=== PATIENT | female | born 1965 | race Caucasian/White ===

== ENCOUNTER 2019-06-10 00:30 | Outpatient (CLI) | payer OTHER, SELFPAY ==
--- NOTE | 2019-06-10 08:00 | DI.MRI_ITS ---
EXAM: MR LUMBAR SPINE WO CLINICAL HISTORY: lumbar pain M54.5 LOW BACK PAIN. TECHNIQUE: Multiplanar multisequence MRI was performed. COMPARISON: No exams were available for comparison FINDINGS: The vertebral bodies are well maintained in height. T12-L1 and L1-2 levels are unremarkable. Conu s medullaris terminates at T12-L1. The L2-3 disc shows mild concentric bulging. There is no signifi cant neural foraminal narrowing or central canal stenosis. There is disc bulging at L3-4 which is ec centric toward the left causing mild neural foraminal narrowing. At L4-5, there is moderate loss of disc height, moderate concentric disc bulging as well as endplate osteophytes which are eccentric tow pepe the right. There are facet degenerative changes but no significant central canal stenosis. There is mild left and moderate right neural foraminal narrowing. The L5-S1 discs shows asymmetric osteop hytes eccentric toward the left. There are bilateral facet degenerative changes. There is mild left neural foraminal narrowing but no significant central canal stenosis. No disc herniation is seen at any level. The aorta is normal in diameter. IMPRESSION: The degenerative disc and facet degenerative changes combine to cause neural foraminal narrowing, gre atest on the right at L4-5.
== END 2019-06-10 00:50 ==
PROVIDERS: Visit Provider Nurse Practitioner Family
DX: M54.5 Low back pain (principal); M51.37 Other intervertebral disc degeneration, lumbosacral region; M47.817 Spondylosis without myelopathy or radiculopathy, lumbosacral region
CPT/HCPCS: 72148

== ENCOUNTER 2019-08-05 13:50 | Outpatient (CLI) | payer OTHER, SELFPAY ==
[2019-08-05 13:53] VITALS: BP 104/73; PULSE 78; RESP 18; TEMP 37.1; O2SAT 96
[2019-08-05 14:46] VITALS: BP 122/83; PULSE 69; RESP 16; O2SAT 99
--- NOTE | 2019-08-05 14:46 | PDOC.PAIN ---
Pain Clinic Procedure Note Procedure Note Procedure Note: Lumbar/Sacral Medial Branch Blocks #1 KEI MURILLO has been referred to the [facility] for lumbar/sacral medial branch blocks. COMMENTS: DX: Lumbosacral spondylosis without myelopathy Patient was interviewed and the medical record reviewed. There were no medical, pharmacologic, radiographic or other structural contraindications to attempting fluoroscopically guided local anesthetic lumbar/sacral medial branch blocks. Risks and expected side effects as well as potential benefit of the procedure were reviewed and voiced concerns addressed. The printed consent form was signed and witnessed. Standard time-out procedure was performed. Patient was placed in the prone position on the fluoroscopy table and automated blood pressure cuff and pulse oximeter applied. The skin entry points for approaching the anatomic target points of the segmental medial branches of bilateral L3-L5 were identified with anfluoroscopy and marked. Following thorough Chlorhexadine preparation of the skin and draping, a 25 gauge 3.5 spinal needle was placed under fluoroscopic guidance down on to the target point for each respective segmental medial branch.Position was confirmed in A/P, oblique and lateral views with 0.25ml of omnipaque 240. At this point I injected 0.5ml of 0.5% Bupivacaine at each segmental nerve. Vital signs were stable throughout the procedure and were as recorded in the docflowsheet by the nursing staff. Follow up plans and appointments were discussed and was instructed to keep careful note of how the usual pain was modified by these injections. Specifically was asked to keep a pain diary for the next 24 hours using a numeric pain scale of 0-10 and report these results at the follow-up visit. Post procedure instruction was given as documented in the nursing documentation and having met discharge criteria. Patient was discharged from the [facility]. Based on the medial branches blocked today, if the patient has adequate relief and we are able to proceed to radiofrequency ablation, the treatment should result in the denervation of the bilateral L4-L5 and L5-S1 FACET JOINTS. We would expect to denervate a total of 4 facets during the radiofrequency ablation. COMMENTS: She will call back with her 1-4 hour post-procedure pain scores for the low back. CC: None
[2019-08-05] MEDS: Omnipaque 240 MG/ML 50 ML BTL IJ (14:56)
[2019-08-05] MEDS: Bupivacaine 0.5% Pres-Free 10 ML VIAL IJ (14:57)
--- NOTE | 2019-08-05 15:37 | DI.RAD_ITS ---
EXAM: XR PAIN CLINIC LUMBAR SP 2V CLINICAL HISTORY: Dx: Lumbar Spondylosis TECHNIQUE: 2D and realtime digital imaging was performed. Fluoroscopy was provided in the OR. C-arm fluoroscopy was utilized by Dr. Foy during bilateral lumbar medial branch blocks. COMPARISON: No exams were available for comparison FINDINGS: Hard copies show needle placement adjacent to the neural foramina at what appear to be the L3-4, L4-5 and L5-S1 levels bilaterally. Fluoro Time: 47.1 seconds.
== END 2019-08-05 14:10 ==
PROVIDERS: Visit Provider Preventive Medicine Occupational Medicine
DX: M47.817 Spondylosis without myelopathy or radiculopathy, lumbosacral region (principal)
CPT/HCPCS: 64493; 64494; 72100; Q9967

== ENCOUNTER 2019-08-24 14:04 | Outpatient (CLI) | payer OTHER, SELFPAY ==
--- NOTE | 2019-08-24 06:00 | DI.RAD_ITS ---
EXAM: XR PAIN CLINIC LUMBAR SP 2V CLINICAL HISTORY: DX: LUMBAR RADICULOPATHY TECHNIQUE: 2D and realtime digital imaging was performed. C-arm fluoroscopy was utilized by Dr. Barber during reported epidural steroid injection. COMPARISON: No exams were available for comparison FINDINGS: Hard copy shows needle placement and injection at the L4-5 disc level. Fluoro time 20.3 seconds RADIATION DOSE DELIVERED:
[2019-08-24 14:33] VITALS: BP 104/66; PULSE 69; RESP 18; TEMP 37.2; O2SAT 95
--- NOTE | 2019-08-24 14:34 | PDOC.PAIN ---
Pain Clinic Procedure Note Procedure Note Procedure Note: Lumbar Epidural Steroid Injection Procedure Note Pre-operative diagnosis: lumbar spondylosis with lumbar radiculopathy Post-operative diagnosis: same as above COMMENTS: patient was seen and evaluated by Ms Amy Reeves APRN, patient has predominantly axial back pain with occasional radiation down left hip area. Patient denies any radiating pain down the right leg. MRI L spine shows lumbar spondylosis, facet arthropathy causing foraminal stenosis, worse at L4-5 level. Patient underwent diagnostic lumbar medial branch nerve block without alleviating any of her symptoms. She returns today for a trial of lumbar epidural steroid injection for symptomatic relief. KEI MURILLO has been referred to the [facility] for lumbar epidural steroid injection. The patient was greeted by the nurse who verified patients name and . Patient was then taken to the fluoroscopy suite. The patient was interviewed and the medial record reviewed. There were no medical, pharmacologic, radiographic, or other structural contraindications to attempting fluoroscopically guided lumbar epidural steroid injection. Risks and expected side effects as well as potential benefits of the procedure were reviewed and voiced concerns expressed. The patient consent form was signed and witnessed. Standard patient time-out procedure was performed. The patient was placed in the prone position on the fluoroscopy table and automated blood pressure cuff and pulse oximeter applied. The skin entry point for entering/approaching the epidural space by a L4-5 and marked. Following thorough chlorhexadine preparation of the skin and draping and 1% lidocaine infiltration of the skin entry point and subcutaneous tissues, a 18 gauge Touhy needle was placed under fluoroscopic guidance and with loss of resistance technique into the epidural space. Needle tip placement and depth were aided and confirmed by fluoroscopy. There was no paresthesia or return of blood or CSF through the needle. 1 cc's of Omnipaque 240 was injected with clear epidural spread confirmed with fluoroscopy. 80mg depomedrol was injected. There was not any unusual discomfort expressed by KEI MURILLO. Patient's vital signs were stable throughout the procedure and were as recorded in nursing records. Follow up plans and appointments were discussed with patient. Post procedure instruction was given as documented in nursing records and having met discharge criteria and was discharged from the [facility]. COMMENTS: If this procedure is helpful, it can be completed up to 3 times per 12 months. If this fails to achieve significant pain relief, then patient should schedule a clinic follow up visit with Ms Leandro APRN. I personally performed the entire procedure. Jennifer Barber MD Pain Management
[2019-08-24 14:58] VITALS: BP 121/82; PULSE 61; RESP 13; O2SAT 97
[2019-08-24] MEDS: Omnipaque 240 MG/ML 50 ML BTL IJ (15:07)
[2019-08-24] MEDS: methylPREDNISolone ACETATE 80 MG/ML VIAL IJ (15:08)
== END 2019-08-24 14:24 ==
PROVIDERS: Visit Provider Internal Medicine
DX: M47.27 Other spondylosis with radiculopathy, lumbosacral region (principal)
CPT/HCPCS: 62323; 72100; J1040; Q9967

== ENCOUNTER 2019-10-28 00:49 | Outpatient (CLI) | payer OTHER, SELFPAY ==
--- NOTE | 2019-10-28 06:45 | DI.RAD_ITS ---
EXAM: XR HIP LT COMPLETE AP PELVIS CLINICAL HISTORY: lumbar pain with associated left hip/groin pain,M25.552 TECHNIQUE: COMPARISON: No exams were available for comparison FINDINGS: Two views of the hip and pelvis were obtained. There are mild hypertrophic degenerative changes of t he SI joints and moderate hypertrophic degenerative changes of visualized portions of the lumbar spin e. The cartilaginous joint spaces of the hips appear well maintained bilaterally. Minimal marginal osteophyte formation of the acetabula noted. No other significant bony abnormality seen. IMPRESSION: Mild DJD both hips.
== END 2019-10-28 01:09 ==
PROVIDERS: Visit Provider Nurse Practitioner Family
DX: M25.552 Pain in left hip (principal); M54.5 Low back pain; M53.3 Sacrococcygeal disorders, not elsewhere classified; M16.0 Bilateral primary osteoarthritis of hip
CPT/HCPCS: 73502

== ENCOUNTER 2019-11-11 09:50 | Outpatient (CLI) | payer OTHER, SELFPAY ==
--- NOTE | 2019-11-11 06:00 | DI.RAD_ITS ---
EXAM: XR PAIN CLINIC SACRIOILIAC 2V CLINICAL HISTORY: Dx:Sacroliliac Joint Dysfunction TECHNIQUE: 2D and realtime digital imaging was performed. Fluoroscopy was provided in the OR COMPARISON: No exams were available for comparison FINDINGS: C-arm fluoroscopy was utilized by Dr. Foy during left SI joint injection. Hard copy shows needle pl acement at the left SI joint. Fluoro time, 29.5 seconds. IMPRESSION: RADIATION DOSE DELIVERED: Total DLP
[2019-11-11 10:09] VITALS: BP 117/78; PULSE 77; RESP 17; TEMP 36.7; O2SAT 94
[2019-11-11 10:43] VITALS: BP 102/53; PULSE 74; RESP 14; O2SAT 95
--- NOTE | 2019-11-11 10:47 | PDOC.PAIN_ITS ---
Pain Clinic Procedure Note Procedure Note Procedure Note: INTRA-ARTICULAR SI JOINT INJECTION KEI MURILLO has been referred to the [facility] for intra-articular SI joint injection. COMMENTS: She has had several procedures and was most recently evaluated in our clinic on 11/03/19 [address] Ms[address] Joseph. I did review that evaluation. DX: Sacroiliac joint dysfunction Patient was interviewed and the medical record reviewed. There were no medical, pharmacologic, radiographic or other structural contraindications to attempting fluoroscopically guided intra-articular SI joint injection. Risks and expected side effects as well as potential benefit of the procedure were reviewed and voiced concerns addressed. The printed consent form was signed and witnessed. Standard time-out procedure was performed. Patient was placed in the prone position on the fluoroscopy table and automated blood pressure cuff and pulse oximeter applied. The skin entry point for approaching the left SI joint was identified under the most advantageous fluoroscopic view and marked. Following thorough Chlorhexadine preparation of the skin and draping and 1% lidocaine infiltration of the skin entry point and subcutaneous tissues, a 22 gauge spinal needle was placed under fluoroscopic anderson dance into the left SI joint. Intra-articular placement was confirmed by a clear arthrogram resulting from the injection of 0.25ml Omnipaque 240, 1ml 1% lidocaine, and 40mg Depomedrol were injected intra-articularily with an initial reproduction of a significant component of the usual pain. Vital signs were stable throughout the procedure and were as recorded in the docflowsheet by the nursing staff. If given, dosages of intravenous drugs for anxiolysis and analgesia were documented in MAR. Follow up plans and appointments were discussed with the patient. Post procedure instruction was given as documented in nursing documentation and having met discharge criteria, and was discharged from the [facility]. COMMENTS: She did very well with the procedure. CC: None
[2019-11-11] MEDS: Omnipaque 240 MG/ML 50 ML BTL IJ (11:07)
[2019-11-11] MEDS: methylPREDNISolone ACETATE 40 MG/ML VIAL IJ (11:07)
== END 2019-11-11 10:10 ==
PROVIDERS: Visit Provider Preventive Medicine Occupational Medicine
DX: M53.3 Sacrococcygeal disorders, not elsewhere classified (principal)
CPT/HCPCS: 27096; 72200; J1030; Q9967

== ENCOUNTER 2020-03-15 01:22 | Outpatient (CLI) | payer OTHER, SELFPAY ==
--- NOTE | 2020-03-15 06:30 | DI.MRI_ITS ---
EXAM: MR LUMBAR SPINE WO CLINICAL HISTORY: Increased symptoms,WEAKNESS LT LOWER EXT,STRAIN,R29.898.S39.012A. TECHNIQUE: Multiplanar multisequence MRI was performed. COMPARISON: MR MR LUMBAR SPINE WO from 06/10/2019 FINDINGS: MR examination of the lumbosacral spine was performed according to the usual protocol. No focal bony signal abnormality seen lumbar or lower thoracic region. The conus medullaris appears intact. No significant findings from the T10-11 level through the L1-2 level. At L2-3, there is a mild disc bulge. There is no disc herniation, central canal spinal stenosis, or neural foraminal stenosis. At L3-4, there is a disc bulge with mild superimposed left lateral disc herniation. No gross interva l change in appearance in comparison with prior scan of May 2019. No significant neural foramin al or central canal stenosis. Mild bilateral facet hypertrophy. At L4-5, there is a mild left lateral disc herniation. There is mild narrowing of left lateral reces s, impingement on left L5 nerve root not excluded. No significant neural foraminal narrowing or cent ral canal spinal stenosis. At L5-S1, there is moderate facet hypertrophy. Mild disc bulge noted, no disc herniation, no neural foraminal stenosis or central canal spinal stenosis. IMPRESSION: Small left-sided disc herniations at L3-4 and L4-5, mild narrowing of left lateral canal recess at L4 -5, possible impingement on left L5 nerve root, please correlate clinically. No gross interval smith e in appearance in comparison with prior scan of May 2019. DATA REPOSITORY:
== END 2020-03-15 01:42 ==
PROVIDERS: Visit Provider Nurse Practitioner Family
DX: R29.898 Other symptoms and signs involving the musculoskeletal system (principal); M51.26 Other intervertebral disc displacement, lumbar region
CPT/HCPCS: 72148

== ENCOUNTER 2020-05-02 09:53 | Outpatient (CLI) | payer OTHER, SELFPAY ==
--- NOTE | 2020-05-02 06:00 | DI.RAD_ITS ---
EXAM: XR PAIN CLINIC LUMBAR SP 2V CLINICAL HISTORY: Dx: Lumbar Radiculopathy TECHNIQUE: 2D and realtime digital imaging was performed. CONTRAST MATERIAL: Refer to procedure report. COMPARISON: No exams were available for comparison FINDINGS: Fluoroscopy was provided for Dr. Barber during the performance of a transforaminal epidural steroid inje ction. Please refer to the procedure report for complete details. Fluoro time: 68.7 seconds IMPRESSION:
[2020-05-02 10:12] VITALS: BP 110/69; PULSE 74; RESP 16; TEMP 36.7; O2SAT 96
[2020-05-02] MEDS: Omnipaque 240 MG/ML 50 ML BTL IJ (11:07)
[2020-05-02] MEDS: Dexamethasone Sod. Phos./Pres-Free 10 MG/ML VIAL IJ (11:07)
--- NOTE | 2020-05-02 11:09 | PDOC.PAIN_ITS ---
Pain Clinic Procedure Note Procedure Note Procedure Note: PROCEDURE NOTE Transforaminal Epidural Steroid Injection with Fluoroscopic Guidance at left L5 Chief Complaint: left leg pain. Injured herself at work about 12 months ago. Previous left L4-5 TFESI and left SI joint injection did not provide any si gnificant pain relief. She is currently on disability and sees occupational therapy. Pre-operative diagnosis: lumbar radiculopathy due to disc herniation Post-operative diagnosis: same as above KEI MURILLO has been referred to the [facility] for Lumbar Transforaminal Epidural Steroid Injection left L5 COMMENTS: Referring provider: Ms Amy Joseph APRN Allergies: PCN Pre-procedure VAS: 9/10 down left leg. Follow up plan: per Ms Amy Joseph APRN. KEI MURILLO was greeted by the nurse who verified patients name and . Patient was then taken to the fluoroscopy suite. KEI was interviewed and the medical record reviewed. There were no medical, pharmacologic, radiographic or other structural contraindications to attempting fluoroscopically guided transforaminal lumbar epidural steroid injection. The risks, benefits, and potential side effects were reviewed with the patient. Risk include, but not limited to, post dural puncture, headache, infection, nerve injury, allergic reaction, possible increase in symptoms over the ensuing 24 to 48 hours, and paralysis. The patient appeared to understand, questions were answered and the patient agreed to proceed. Once I obtained informed verbal consent, the printed consent form was signed by the patient and myself. Standard time-out procedure was performed. TECHNIQUE: After informed written consent was obtained the patient was placed in the prone position. The lumbar spine was prepped with chloraprep and draped. Sterile technique was observed during the entire procedure ( cap, gloves, and mask were worn). Vitals signs were monitored throughout the procedure. The left side was marked with a radioopaque marker. The skin and subcutaneous structures were anesthetized with lidocaine 1% to a total volume of 3 ML at each level. Under fluoroscopic guidance, in ipsilateral oblique view, co-axial approach, 22 gauge 5'' spinal needle(s) were advanced to the base of the lumbar L5 pedicle(s). The needle(s) were advanced to the superio-posterior aspect of the neural foramen under lateral view. Oblique and AP views were rechecked. Under AP view Omnipaque 240 1cc's was injected while visualized with fluoroscopy. There was no evidence of intravascular uptake, the epidural space was delineated. 15 mg Dexamethasone was injected after negative aspiration, at each level, followed by lidocaine 1% 1.0-ML at each level. (49 cc of Omnipaque was wasted). Outcome: The patient tolerated the procedure well and had stable vital signs. The patient noted after getting up after the procedure that their left leg pain was at a 9 out of 10 level. patient reports intense pressure localized to left lower back with lesser pressure down posterior buttock and lateral aspect of her left leg - she is able to ambulate independently. individual lower extremity muscle strengths were tested which was 5/5, with pain limited component. patient is very cautious with her gait with ambulation. Follow up plans and appointments were discussed with KEI . The patient was o bserved in the pain clinic and then discharged after having met discharge criteria to the care of a industrial tractor driver. The patient received written instructions as documented in nursing records. Disposition: KEI was discharged from the procedure suite without new neurological complaints. Follow-up: Follow up with as scheduled or PRN. I would be hesitant to rep eat injections unless it provides significant pain relief. I personally performed the entire procedure. Jennifer Barber MD ABPN-subspecialty board certification in Pain Medicine Attending Physician-Pain Management
[2020-05-02 11:12] VITALS: BP 112/79; PULSE 76; RESP 19; O2SAT 100
== END 2020-05-02 10:13 ==
PROVIDERS: Visit Provider Internal Medicine
DX: M54.16 Radiculopathy, lumbar region (principal)
CPT/HCPCS: 64483; 72100; Q9967

== ENCOUNTER 2020-10-19 02:08 | Outpatient (CLI) | payer MEDICAID, SELFPAY ==
--- NOTE | 2020-10-19 07:00 | DI.US_ITS ---
EXAM: US BREAST LT COMPLETE CLINICAL HISTORY: BILAT BREAST PAIN,n64.4, family h/o breast ca. TECHNIQUE: Complete ultrasound of the left breast was performed incluing all 4 quadrants, the retroa reolar region, and the ipsilateral axilla. COMPARISON: Prior mammogram performed today was reviewed FINDINGS: No evidence of solid or significant cystic lesions in all 4 quadrants. Retroareolar region is negative. No adenopathy in the left axilla IMPRESSION: Negative complete ultrasound of the left breast BI-RADS Category 0 - Assessment Incomplete: Need additional imaging evaluation, specifically the stanislaw ent will tearing or prior film screen mammograms for comparison to the mammogram performed today. Fi nal addendum will follow once this has been performed Breast Density - Category B - Scattered areas of fibroglandular density Breast density Category C or D implies that the patient has dense breast tissue. Dense breast tissue can make it harder to find cancer on a mammogram. Dense breast tissue is also associated with an incr eased risk of breast cancer. This information about the result of the mammogram report was provided to the patient to raise their awareness. Use this report when you speak with the patient about their risks for breast cancer, which includes their family history. At that time, you may recommend additional screening tests (Ultrasoun d or MRI) as these tests may add significant information. A negative radiographic report should not delay biopsy if a dominant or clinically suspicious mass is present. Up to ten percent of cancers are not identified on mammography. A negative report may reinforce clinical impression. Adenosis and dense breasts may obscure an underlying neoplasm. False positive reports average 6 to 10%. Patient will receive a letter notifying them of these results.
--- NOTE | 2020-10-19 07:00 | DI.US_ITS ---
EXAM: US BREAST RT COMPLETE CLINICAL HISTORY: BILAT BREAST PAIN,n64.4, family h/o breast ca. TECHNIQUE: Complete ultrasound of the right breast was performed incluing all 4 quadrants, the retro areolar region, and the ipsilateral axilla. COMPARISON: Prior mammograms were reviewed. Patient has not brought in her outside 2001 and 2006 carole m screen mammograms. FINDINGS: There is a solitary finding which is at 10 o'clock position 6 cm in from the nipple which has the humberto earance of a 4 x 3 millimeter benign lymph node. This benign ultrasound finding may or may not corre spond to finding on the mammogram. Nevertheless, finding on the mammogram is unchanged from 2001 and 2006 and therefore benign. No other ultrasound findings in all 4 quadrants. Also no ipsilateral axillary adenopathy. IMPRESSION: Benign findings. No evidence of malignancy BI-RADS Category 2 - Benign Findings Breast Density - Category A - Almost entirely fatty Breast density Category C or D implies that the patient has dense breast tissue. Dense breast tissue can make it harder to find cancer on a mammogram. Dense breast tissue is also associated with an incr eased risk of breast cancer. This information about the result of the mammogram report was provided to the patient to raise their awareness. Use this report when you speak with the patient about their risks for breast cancer, which includes their family history. At that time, you may recommend additional screening tests (Ultrasoun d or MRI) as these tests may add significant information. A negative radiographic report should not delay biopsy if a dominant or clinically suspicious mass is present. Up to ten percent of cancers are not identified on mammography. A negative report may reinforce clinical impression. Adenosis and dense breasts may obscure an underlying neoplasm. False positive reports average 6 to 10%. Patient will receive a letter notifying them of these results.
--- NOTE | 2020-10-19 07:00 | DI.MAMMO_ITS ---
EXAM: MG MAMMO DIAGNOSTIC BI CLINICAL HISTORY: BILAT BREAST PAIN,n64.4, family h/o breast ca. TECHNIQUE: Both CC and MLO images were obtained with 3D [employer] and utilizing compute r aided detection (CAD). Also performed spot compression view of the right breast. COMPARISON: None available at this time. The patient informs me that she has prior film screen mamm ograms at her house which she was instructed to bring here for comparison purposes. An addendum will follow when these received. She has apparently complaining of bilateral breast pain. She denies feeling a lump. No discharge FINDINGS: There are small benign-appearing nodules in both upper outer quadrants which are probably benign lymp h nodes. In the right breast CC image there is an asymmetric density measuring 8 x 4 millimeters located appro ximately 6 cm in from the nipple. Spot compression view reveals this to be a possible lymph node. Benign-appearing micro and macro calcifications noted bilaterally. No significant architectural distortion or skin thickening-traction. IMPRESSION: 1. No radiographic evidence of malignancy in left breast. 2. Asymmetric density-possible nodule right breast. An addendum will follow when we receive her prio r outside film screen mammograms for comparison. 3. Please note that bilateral complete breast ultrasound performed following the mammogram today reve aled a 4-5 millimeter benign-appearing intramammary lymph node in the right breast approximately 6 cm in from the nipple which may or may not correspond to the finding on the mammogram. There are no ot her focal ultrasound findings in all 4 quadrants. Please see that separate ultrasound report.. BI-RADS Category 0 - Assessment Incomplete: Need additional imaging evaluation, specifically comparis on to prior outside mammograms. An addendum with final BI-RADS will follow once these are obtained. Breast Density - Category B - Scattered areas of fibroglandular density Breast density Category C or D implies that the patient has dense breast tissue. Dense breast tissue can make it harder to find cancer on a mammogram. Dense breast tissue is also associated with an incr eased risk of breast cancer. This information about the result of the mammogram report was provided to the patient to raise their awareness. Use this report when you speak with the patient about their risks for breast cancer, which includes their family history. At that time, you may recommend additional screening tests (Ultrasoun d or MRI) as these tests may add significant information. A negative radiographic report should not delay biopsy if a dominant or clinically suspicious mass is present. Up to ten percent of cancers are not identified on mammography. A negative report may reinforce clinical impression. Adenosis and dense breasts may obscure an underlying neoplasm. False positive reports average 6 to 10%. Patient will receive a letter notifying them of these results.
== END 2020-10-19 02:28 ==
PROVIDERS: PCP Nurse Practitioner Family; Visit Provider Physician Assistant
DX: N64.4 Mastodynia (principal); Z80.3 Family history of malignant neoplasm of breast; R92.8 Other abnormal and inconclusive findings on diagnostic imaging of breast; N63.11 Unspecified lump in the right breast, upper outer quadrant
CPT/HCPCS: 76642; 77062; 77066; G0279

== ENCOUNTER 2020-10-30 01:19 | Outpatient (CLI) | payer OTHER, SELFPAY ==
--- NOTE | 2020-10-30 06:30 | DI.MRI_ITS ---
Exam(s) MR LUMBAR SPINE WO EXAM: MR LUMBAR SPINE WO CLINICAL HISTORY: Increased weakness left lower extremity,low back pain with radiation,m54.5,. TECHNIQUE: Multiplanar multisequence MRI of the Lumbar spine was performed. COMPARISON: MR MR LUMBAR SPINE WO from 03/15/2020 FINDINGS: Bones: The last intervertebral disc space is designated the L5/S1 level for the numbering purpose of this examination. The vertebral body heights are well maintained. Alignment is satisfactory. Mild d egenerative endplate signal changes are noted at multiple levels in the lumbar spine. Cord: The conus tip ends at the L1 level. It is of normal size and signal intensity. T12-L1: No disc herniations or bulges are present. No central spinal canal or neural foraminal stenos is. L1-2: No disc herniations or bulges are present. No central spinal canal or neural foraminal stenosis . L2-3: There is now developed a moderate sized left paracentral disc herniation with extrusion posteri or to the L2 vertebral body. It may compress the left L2 nerve root. There is mild narrowing of the central spinal canal. No significant neural foraminal stenosis is present. L3-4: There has been interval increase in size of the left paracentral disc herniation. It causes le ft lateral recess stenosis compressing the left L4 nerve root. There are degenerative changes of the facets. Mild narrowing of the central spinal canal is noted. No significant right neural foraminal stenosis is seen. There is mild left neural foraminal stenosis. L4-5: There is a diffuse disc bulge. There are mild degenerative changes of the facets. No signific ant central spinal canal stenosis is seen.Mild bilateral neural foraminal stenosis is present. L5-S1: No disc herniations or bulges are present. No central spinal canal or neural foraminal stenosi s. Soft tissues: The visualized SI joints and sacrum are well maintained. The paraspinal soft tissues ar e unremarkable. There is again seen a 2 cm right simple renal cyst. IMPRESSION: 1. Interval development of a left paracentral disc herniation at L2-L3 with extrusion posterior to th e L2 vertebral body. It causes left lateral recess stenosis and appears to compress the left L2 nerv e root. 2. Interval increase in size of the L3-L4 left paracentral disc herniation. It causes left lateral r ecess stenosis compressing the left L4 nerve root. 3. Multilevel degenerative changes in the lumbar spine as described above. DATA REPOSITORY:
== END 2020-10-30 01:39 ==
PROVIDERS: PCP Nurse Practitioner Family; Visit Provider Nurse Practitioner Family
DX: M54.16 Radiculopathy, lumbar region (principal); M79.605 Pain in left leg; M62.81 Muscle weakness (generalized); M51.16 Intervertebral disc disorders with radiculopathy, lumbar region
CPT/HCPCS: 72148

== ENCOUNTER 2020-11-19 18:20 | Emergency (ER) | payer SELFPAY ==
[2020-11-19 18:25] VITALS: PULSE 73; RESP 18; TEMP 36.7; O2SAT 96
--- NOTE | 2020-11-19 18:41 | ED.GENADUL_ITS ---
Discharge Plan Disposition Patient Disposition: HOME Condition: Stable Discharge Details Clinical Impression: Tick bite Primary Care Provider: [place] Ayala ED Provider: Latesha Barajas Home Meds and New Rx's Prescriptions: No Action acetaminophen 500 mg Tablet 1,000 mg PO TID RF: 0 gabapentin 600 mg tablet 600 mg PO TID 30 Days Qty: 90 RF: 11 gabapentin 300 mg capsule 300 mg PO QHS Qty: 90 RF: 0 meloxicam 7.5 mg tablet 7.5 mg PO BID Qty: 60 RF: 2 (DME) TENS unit and electrodes Combo Pack See Rx Instructions .ROUTE .MEDSUPPLY Qty: 1 RF: 0 Discharge Instructions Instructions: Tick Bite (ED) Additional Instructions: Follow up with primary care provider in 3-5 days. Return to ED sooner if any worsening or concerns. Increase oral fluids. Please take Tylenol or Ibuprofen with food every 4-6 hours as needed for pain and swelling. You were given a one-time dose of doxycycline 200 mg which is the preventative for Lyme disease at this time. Please be seen by your PCP for any fever worsening rash or any concern Referrals: [place] Ayala, RUDI [Primary Care Provider] - Discharge Data Discharge Date/Time-TO BE ENTERED AT DEPARTURE: 11/19/20 19:01 Medical Decision Making 55-year-old female presents to the ER with chief complaint of tick bite noted to the right posterior shoulder which she noticed on Friday. Tick was engorged she was unable to identify it. She did pull it out. There is a rash noted with a centralized bite hortensia. She denies any other symptoms or concerns. At this time we will treat her for Lyme preventative with doxycycline 200mg.. Instructed to follow-up with PCP discussed strict return instructions including worsening rash, nausea vomiting or any concerns. HPI General Mode of arrival: ambulatory . Date/Time Provider Initiated Documentation: 11/19/20 18:39 . Limitations to Documentation: no limitations . Information obtained by: patient . HPI Narrative: Tick bite right posterior shoulder 2 days ago. Patient did not identify tick. She states it was engorged and she threw it away. Does have a slight erythemic raised rash with well-demarcated borders noted around a central bite. No other rash noted no other complaints at this time. She is allergic to amoxicillin and penicillin. Related Data Home Medications Medication Instructions Recorded Confirmed TENS unit and electrodes combo pack #1 each 06/17/19 11/19/20 acetaminophen 1,000 mg PO TID 07/22/19 11/19/20 gabapentin 600 mg tablet 600 mg PO TID 30 Days #90 tab 06/19/20 11/19/20 gabapentin 300 mg capsule 300 mg PO QHS #90 cap 09/06/20 11/19/20 meloxicam 7.5 mg tablet 7.5 mg PO BID #60 tab 10/03/20 11/19/20 Previous Rx's Medication Instructions Recorded TENS unit and electrodes combo pack #1 each 06/17/19 gabapentin 600 mg tablet 600 mg PO TID 30 Days #90 tab 06/19/20 gabapentin 300 mg capsule 300 mg PO QHS #90 cap 09/06/20 meloxicam 7.5 mg tablet 7.5 mg PO BID #60 tab 10/03/20 Allergies Allergy/AdvReac Type Severity Reaction Status Date / Time amoxicillin Allergy Topical Unverified 11/19/20 18:29 Irritation Penicillins Allergy Anaphylaxsi Verified 10/03/20 17:52 s General Stated Complaint: RashLesion KENRICK: 4 Review of Systems All systems reviewed & are unremarkable except as noted in HPI and below Integumentary/Breasts Skin/Breast: Reports as per HPI and Reports rash (Right posterior shoulder tick bite) PFSH Surgical History H/O tubal ligation (~1990) History of appendectomy (~2005) 2005 Hx of section 11/17/1989 03/17/1991 Hx of tonsillectomy Family History Mother , 69 Cancer Father , 42 Cancer Sister , 47 Cancer Sister No problems noted. Brother , 71 Cancer Son No problems noted. Son No problems noted. Maternal Grandfather , 85 No problems noted. Paternal Grandfather , 30 No problems noted. Maternal Grandmother , 80 Cancer Paternal Grandmother , 79 No problems noted. Social History Smoking/Tobacco Use Status: Former Tobacco Use tobacco type: cigarettes Quit Date: 08/28/94 Pack-years: 13 Second Hand Exposure: Yes Smoking risk assessment performed?: Yes Alcohol Intake: current Alcohol Intake frequency: a few times a month Alcohol type: beer, wine and hard liquor Drug use: Never Substance use type: does not use Caregiver/Support person: No Household members: spouse Housing: house Number of Children: 2 Communication Needs: Corrective Lenses Do you need help understanding health information?: Never Pets and animals: Yes Pets and animals: cat(s) and dog(s) Sexually active: No Do you think of yourself as: straight/heterosexual Current gender identity: female What is your relationship status?: How often do you talk on the phone with friends or family?: three or more times per week How often do you get together with friends or relatives?: once per week How often do you attend uatsdin or uatsdin services?: decline to answer Do you belong to any clubs or organized social groups?: yes Panel score (0-1 are the most socially isolated patients): 3 What type of physical activity do you participate in: walking and additional Details: PT Pool Therapy Duration: < 15 minutes/day Frequency: 1-2 times per week Jonna/Mu-Ism: Druze Seatbelt use: sometimes Helmet use: Yes Helmet use: sometimes Drive intox or ride w/intox school bus driver/teacher assistant: No Do you feel safe at home: Yes Do you feel safe in your relationship?: Yes Exam Back/Spine/Pelvis Back/spine/pelvis image: 1. Raised maculopapular erythemic area with central bite melendez. Patient reports tick bite, no other rash noted at this time mother, Course Vital Signs Vital signs: Vital Signs Temperature 36.7 C 11/19/20 18:25 Pulse 73 11/19/20 18:25 Respiratory Rate 18 11/19/20 18:25 Pulse Oximetry 96 11/19/20 18:25 Temperature 36.7 C 11/19/20 18:25 Temperature Source Skin 11/19/20 18:25 Pulse 73 11/19/20 18:25 Respiratory Rate 18 11/19/20 18:25 Respiratory Effort Non-Labored 11/19/20 18:28 Blood Pressure Position Sitting 11/19/20 18:25 Pulse Oximetry 96 11/19/20 18:25 Oxygen Delivery Method Room Air 11/19/20 18:25 Oxygen Flow Rate 0 11/19/20 18:25 Pain Level 2 11/19/20 18:25
[2020-11-19] MEDS: Doxycycline Hyclate 100 MG CAP 200 MG PO (18:56)
== END 2020-11-19 19:01 | disposition home or self-care (01) ==
PROVIDERS: Emergency Provider Registered Nurse Emergency; PCP Nurse Practitioner Family
DX: S20.461A Insect bite (nonvenomous) of right back wall of thorax, initial encounter (principal); W57.XXXA Bitten or stung by nonvenomous insect and other nonvenomous arthropods, initial encounter; R21 Rash and other nonspecific skin eruption
CPT/HCPCS: 99283

== ENCOUNTER 2020-11-21 20:45 | Outpatient (REF) | payer SELFPAY ==
[2020-11-23 09:42] LABS: Lyme Ab w Rflx to Lyme Confirm Negative (Negative)
[2020-11-24 03:42] LABS: Anaplasma phagocytophilum Negative (Negative); B. miyamotoi PCR Negative (Negative); Babesia divergens/MO-1 Negative (Negative); Babesia duncani Negative (Negative); Babesia microti Negative (Negative); Ehrlichia chaffeensis Negative (Negative); Ehrlichia ewingii/canis Negative (Negative); Ehrlichia muris eauclairensis Negative (Negative)
== END 2020-11-21 20:46 | disposition home or self-care (01) ==
LOC: NCHCN 20:45
PROVIDERS: PCP Nurse Practitioner Family; Visit Provider Nurse Practitioner Family
DX: W57.XXXA Bitten or stung by nonvenomous insect and other nonvenomous arthropods, initial encounter (principal); T14.8XXA Other injury of unspecified body region, initial encounter
CPT/HCPCS: 87798; 86618

== ENCOUNTER 2021-03-23 09:27 | Outpatient (CLI) | payer SELFPAY ==
--- NOTE | 2021-03-23 09:15 | RT.EKG_ITS ---
APPROVED REPORT Exam: Resting ECG Reason for Exam: pre-op eval Patient Location: O HR:64 bpm ECG Measurements Heart Rate 64 AXIS NH 174 P 34 QRSd 95 QRS -39 QT 420 T 30 QTc 433 Conclusion Sinus rhythm...normal P axis, V-rate 60- 99 Left axis deviation...QRS axis (-30,-90)
== END 2021-03-23 09:28 | disposition home or self-care (01) ==
LOC: DI.CM 09:28
PROVIDERS: PCP Nurse Practitioner Family; Visit Provider Nurse Practitioner
DX: Z01.818 Encounter for other preprocedural examination (principal); I44.4 Left anterior fascicular block
CPT/HCPCS: 93010

== ENCOUNTER 2021-08-09 02:06 | Outpatient (CLI) | payer OTHER, SELFPAY ==
--- NOTE | 2021-08-09 | DI.MRI_ITS ---
Exam(s) MR LUMBAR SPINE WO/W EXAM: MR LUMBAR SPINE WO/W CLINICAL HISTORY: H/O LUMBAR SURGERY, RECENT FALL, NEW LEG SYMPTOMS AND BACK PAIN,DISC AVNI-. TECHNIQUE: Multiplanar multisequence MRI of the Lumbar spine was performed. Both pre and post contra st infused sequences were performed COMPARISON: MR MR LUMBAR SPINE WO from 10/30/2020 FINDINGS: Compared to prior preop MRI scan performed October 2020 Conus medullaris is at normal level. There is no evidence of conus mass nor subjacent clumping of in trathecal nerve roots to suggest arachnoiditis. The distal thecal sac appears unremarkable.There is no evidence of Tarlov intrasacral cysts nor other significant findings within the sacral canal Bones:There are no fractures nor ominous osseous lesions in the lumbar vertebral bodies and visualize d sacrum. With respect to the individual levels... T12-L1: Unremarkable L1-2: Normal disc height and signal. No disc herniation nor central canal stenosis.No foraminal steno sis L2-3: There has been interval left partial laminectomy at this level. The previously present disc he rniation is no longer seen. No new significant disc herniation at this level and no central canal st enosis.Also no significant foraminal stenosis evident at this level.No obvious facet arthropathy. L3-4: This level also exhibits evidence of left-sided surgery. There is left side annular bulging at this level again noted. However, the size of the posterolateral left disc protrusion is smaller jf n previous. Some enhancement is seen in this region which is consistent granulation tissue. Annular bulging on the left side extends into the floor of the exiting left neural foramen, unchanged from p revious. However, there is no prominent foraminal stenosis on the left side at this level. There is no foraminal stenosis on the opposite-right side. No prominent facet arthropathy at this level. L4-5: This level again exhibits chronic decreased disc height and signal and annular bulging which is again more prominent on the right side and extends into the floor of the exiting right neural forame n, unchanged. Mild right-sided foraminal stenosis is unchanged. No significant left-sided foraminal stenosis. Central canal pins are. Mild facet joint degenerative changes. L5-S1: Preserved disc height and signal. No disc herniation or central canal stenosis. No significa nt foraminal stenosis. Soft tissues: There is a cyst in the right kidney incidentally noted which measures 2 cm. This is u nchanged from the prior October 2020 study. IMPRESSION: 1. When compared to the prior MRI scan of October 2020 there has been interval surgery on 2 left-sided co ntiguous levels. The previously present acute/subacute disc herniation on the left side at L2-3 leve l is no longer seen. Small posterolateral left disc protrusion at L3-4 level is again noted but appe ars smaller and appearance may in part be related to postop epidural granulation tissue at this level . 2. Other levels are unchanged. There is no new large disc herniation. No new canal nor foraminal st enosis. 3. No fractures nor listhesis. DATA REPOSITORY:
[2021-08-09] MEDS: Normal Saline Flush 10 ML SYR IVP (12:33)
[2021-08-09] MEDS: Gadoterate meglumine 20 ML VIAL IVP (12:33)
== END 2021-08-09 02:26 ==
PROVIDERS: PCP Nurse Practitioner Family; Visit Provider Neurological Surgery
DX: M54.59 Other low back pain (principal); M51.26 Other intervertebral disc displacement, lumbar region; M47.26 Other spondylosis with radiculopathy, lumbar region; Z98.890 Other specified postprocedural states; Z91.81 History of falling; R26.2 Difficulty in walking, not elsewhere classified; M51.17 Intervertebral disc disorders with radiculopathy, lumbosacral region
CPT/HCPCS: 72158

== ENCOUNTER 2021-08-09 15:15 | Outpatient (CLI) | payer OTHER, SELFPAY ==
--- NOTE | 2021-08-09 13:45 | DI.RAD_ITS ---
Exam(s) XR FACIAL BONES COMPLETE EXAM: XR FACIAL BONES COMPLETE CLINICAL HISTORY: facial pain, post fall, fall against object, [id number]. TECHNIQUE: 2D digital imaging was performed. COMPARISON: No exams were available for comparison FINDINGS: Four plain film views of the facial bones reveal no evidence of obvious fractures and no fluid in the visualized paranasal sinuses. No obvious orbital fractures. No evidence of nasal bone fracture. N o obvious mandible fracture. No lytic osseous lesions evident. Degenerative facet arthropathy incidentally noted in the cervical spine IMPRESSION: No facial fractures evident on these plain film views. If clinically indicated follow-up maxillofaci al CT scan can be performed DATA REPOSITORY: RADIATION DOSE DELIVERED:
== END 2021-08-09 15:35 ==
PROVIDERS: PCP Nurse Practitioner Family; Visit Provider Nurse Practitioner Family
DX: G50.1 Atypical facial pain (principal); S09.8XXA Other specified injuries of head, initial encounter; W18.00XA Striking against unspecified object with subsequent fall, initial encounter
CPT/HCPCS: 70150

== ENCOUNTER 2021-10-19 10:16 | Outpatient (CLI) | payer OTHER, SELFPAY ==
--- NOTE | 2021-10-19 10:00 | DI.RAD_ITS ---
Exam(s) XR HIP LT COMPLETE AP PELVIS EXAM: XR HIP LT COMPLETE AP PELVIS INDICATION: left hip pain. COMPARISON: CR XR HIP LT COMPLETE AP PELVIS from 10/28/2019 TECHNIQUE: 2D digital imaging was performed. Two views. FINDINGS: Hip joint spaces are well maintained. There is mild acetabular spurring at the on the left. No tend on or joint space calcifications are seen. Enthesophytes are noted at the iliac wings. Mild spurrin g at the SI joints. IMPRESSION: Mild degenerative changes. DATA REPOSITORY: RADIATION DOSE DELIVERED:
== END 2021-10-19 10:17 | disposition home or self-care (01) ==
LOC: DIORS 10:17
PROVIDERS: PCP Nurse Practitioner Family; Referring Provider Nurse Practitioner Family; Visit Provider Physician Assistant
DX: M25.552 Pain in left hip (principal); M16.12 Unilateral primary osteoarthritis, left hip
CPT/HCPCS: 73502

== ENCOUNTER → 2021-11-01 02:32 | Outpatient (CLI) | payer OTHER, SELFPAY ==
--- NOTE | 2021-11-01 14:20 | DI.RAD_ITS ---
Exam(s) RF JOINT INJECTION FLUORO GUID EXAM: RF JOINT INJECTION FLUORO GUID CLINICAL HISTORY: L HIP INJ UNDER FLUORO, LT HIP PAIN, M25.552 TECHNIQUE: 2D and realtime digital imaging was performed. COMPARISON: No exams were available for comparison FINDINGS: Fluoroscopy was utilized by Dr. Frost during left hip injection. Hard copy shows intra-articular left hip injection. IMPRESSION: RADIATION DOSE DELIVERED: ayaka Colin=0.36 mGy Total DLP
--- NOTE | 2021-11-01 14:29 | W.PROCNOTE ---
Procedure Note Date of procedure: 11/01/21 Procedure: Left Hip Injection with Fluoroscopic Guidance Surgeon/Proceduralist/Physician: Manuel Frost Procedure Diagnosis: Left Hip Pain Procedure Indications: Katrin has had persistent pain of the LEFT hip and groin. Noninvasive measures have been tried. To serve as both diagnostic and therapeutic, an injection under fluoroscopy was recommended. I had discussed the risks of the procedure and the patient elected to proceed. Procedure Description: Katrin was greeted in the flouroscopy room. The correct side was identified and the consent was reviewed with the patient and signed. The patient was then placed in the supine position on the fluoroscopy table. The LEFT hip was then prepped with Chloraprep. The anterolateral injection starting point was identiifed by bony landmarks and fluoroscopy. The skin and soft tissue in the tract of the injection was anesthetized with 1% Lidocaine. A spinal needle was then inserted deep into the hip joint at the level of the lateral femoral neck under fluoroscopic guidance. A small amount of Omnipaque solution was injected to confirm intraarticular placement. Once confirmed, the hip was injected with 6cc of 0.5% Bupivicaine and 80mg of Depo-Medrol. A bandaid was placed on the injection site. The patient tolerated the procedure well but did not notice any significant improvement in pre-injection pain.
[2021-11-01] MEDS: Omnipaque 300 MG/ML 10 ML BTL IJ (14:39)
[2021-11-01] MEDS: Bupivacaine 0.5% Pres-Free 30 ML VIAL 5 ML IJ (14:39)
[2021-11-01] MEDS: methylPREDNISolone ACETATE 80 MG/ML VIAL IM (14:39)
== END ==
PROVIDERS: PCP Nurse Practitioner Family; Visit Provider Student in an Organized Health Care Education/Training Program
DX: M25.552 Pain in left hip (principal)
CPT/HCPCS: 20610; 77002; J1040

== ENCOUNTER → 2021-11-29 01:22 | Outpatient (CLI) | payer OTHER, SELFPAY | PROVIDERS: PCP Nurse Practitioner Family; Visit Provider Nurse Practitioner Family ==

== ENCOUNTER 2022-08-21 11:05 | Outpatient (CLI) | payer MEDICAID, SELFPAY ==
--- NOTE | 2022-08-21 10:37 | DI.RAD_ITS ---
Exam(s) XR FOOT LT COMPLETE EXAM: XR FOOT LT COMPLETE CLINICAL HISTORY: lt foot pain x 2 wks, M79.672. TECHNIQUE: 2D digital imaging was performed of the left foot. Three images were obtained. AP, obli que and lateral views were obtained. COMPARISON: No exams were available for comparison FINDINGS: BONES: No acute fracture is present. No bony destructive lesion is seen. There is a small plantar aaliyah caneal spur and enthesophyte at the posterior calcaneus. JOINTS: No dislocation present. Hypertrophic changes are seen at the ankle joint anteriorly. There i s mild degenerative change seen at the 1st MTP joint. SOFT TISSUE: Normal. IMPRESSION: Degenerative changes of the foot as described above. No acute abnormality. DATA REPOSITORY: RADIATION DOSE DELIVERED:
== END 2022-08-21 11:25 ==
LOC: DI 11:05
PROVIDERS: PCP Nurse Practitioner Family; Visit Provider Nurse Practitioner Family
DX: M79.672 Pain in left foot (principal); M77.32 Calcaneal spur, left foot; M19.072 Primary osteoarthritis, left ankle and foot
CPT/HCPCS: 73630

== ENCOUNTER 2022-08-23 01:45 | Outpatient (CLI) | payer MEDICAID, SELFPAY ==
[2022-08-23 12:40] LABS: Abs Immature Grans 0.02 10^3/uL (0.0-0.06); Absolute Basophil Count 0.04 10^3/uL (0.0-0.2); Absolute Eosinophil Count 0.14 10^3/uL (0.0-0.7); Absolute Lymphocyte Count 1.91 10^3/uL (1.2-3.4); Absolute Monocyte Count 0.46 10^3/uL (0.1-0.8); Absolute Neutrophil Count 2.38 10^3/uL (1.2-6.7); Basophils % 0.8; Eosinophils % 2.8; HCT 39.4 % (36.0-46.0); HGB 12.8 g/dL (11.2-15.7); Immature Grans % 0.4; Lymphocytes % 38.6; MCH 30.6 pg (27.0-33.0); MCHC 32.5 % (32.0-36.0); MCV 94 fL (80-95); MPV 9.8 fL (8.0-11.0); Monocytes % 9.3; Neutrophils % 48.1; Platelet Count 250 10^3/uL (130-400); RBC 4.18 10^6/uL (3.93-5.22); RDW-SD 41.3 fL; WBC 4.95 10^3/uL (4.4-10.8)
[2022-08-23 13:07] LABS: ALT 21 U/L (14-59); AST 15 U/L (15-37); Albumin 3.9 g/dL (3.4-5.0); Alkaline Phosphatase 79 U/L (46-116); Anion Gap 3.9 mmol/L (3-11); BUN 17 mg/dL (7-18); Bilirubin, Total 0.6 mg/dL (0.2-1.0); CO2 31.1 mmol/L (21.0-32.0); Calcium 9.1 mg/dL (8.5-10.1); Chloride 104 mmol/L (98-107); Estimated GFR 65.71 (mL/min/1.73m2); Glucose 101 mg/dL (74-106); Potassium 4.2 mmol/L (3.5-5.1); Sodium 139 mmol/L (136-145); Total Protein 6.9 g/dL (6.4-8.2); Uric Acid 5.4 mg/dL (2.6-6.0)
== END 2022-08-23 01:46 | disposition home or self-care (01) ==
LOC: LOS 01:45
PROVIDERS: PCP Nurse Practitioner Family; Visit Provider Nurse Practitioner Family
DX: M79.672 Pain in left foot (principal)
CPT/HCPCS: 36415; 80053; 84550; 85025

== ENCOUNTER 2022-11-30 16:19 | Outpatient (REF) | payer MEDICARE, SELFPAY | END 2022-11-30 16:20 | disposition home or self-care (01) | LOC: LBN 16:19 | PROVIDERS: PCP Nurse Practitioner Family; Visit Provider Physician Assistant | DX: J02.9 Acute pharyngitis, unspecified (principal) | CPT/HCPCS: 87070 ==

== ENCOUNTER 2022-12-04 04:21 | Outpatient (CLI) | payer MEDICARE, SELFPAY ==
[2022-12-04 15:15] LABS: Abs Immature Grans 0.03 10^3/uL (0.0-0.06); Absolute Basophil Count 0.03 10^3/uL (0.0-0.2); Absolute Lymphocyte Count 1.53 10^3/uL (1.2-3.4); Absolute Monocyte Count 0.61 10^3/uL (0.1-0.8); Absolute Neutrophil Count 3.47 10^3/uL (1.2-6.7); Basophils % 0.5; Eosinophils % 1.7; HCT 41.1 % (36.0-46.0); HGB 13.8 g/dL (11.2-15.7); Immature Grans % 0.5; Lymphocytes % 26.5; MCH 31.3 pg (27.0-33.0); MCHC 33.6 % (32.0-36.0); MCV 93 fL (80-95); MPV 9.2 fL (8.0-11.0); Monocytes % 10.6; Neutrophils % 60.2; Platelet Count 278 10^3/uL (130-400); RBC 4.41 10^6/uL (3.93-5.22); RDW 12.3 % (11.7-14.6); RDW-SD 42.6 fL; WBC 5.77 10^3/uL (4.4-10.8)
[2022-12-04 16:27] LABS: TSH (W/Ref FT4) 0.71 uIU/mL (0.36-3.74)
[2022-12-06 12:30] LABS: Lyme Ab w Rflx to Lyme Confirm Equivocal (Negative)
[2022-12-06 14:38] LABS: Lyme IgG Ab Negative (Negative); Lyme IgM Ab Negative (Negative)
[2022-12-08 15:30] LABS: Anaplasma phagocytophilum Negative (Negative); B. miyamotoi PCR Negative (Negative); Babesia divergens/MO-1 Negative (Negative); Babesia duncani Negative (Negative); Babesia microti Negative (Negative); Ehrlichia chaffeensis Negative (Negative); Ehrlichia ewingii/canis Negative (Negative); Ehrlichia muris eauclairensis Negative (Negative)
== END 2022-12-04 04:22 | disposition home or self-care (01) ==
PROVIDERS: Physician Assistant; PCP Nurse Practitioner Family; Visit Provider Nurse Practitioner Family
DX: J02.9 Acute pharyngitis, unspecified (principal); R50.9 Fever, unspecified; R53.83 Other fatigue; R05.8 Other specified cough; S40.262A Insect bite (nonvenomous) of left shoulder, initial encounter; W57.XXXA Bitten or stung by nonvenomous insect and other nonvenomous arthropods, initial encounter
CPT/HCPCS: 36415; 86617; 87798; 84443; 85025; 86618